=== PATIENT | male | born 1990 ===

== ENCOUNTER 2018-06-11 14:17 | Emergency (ER) | payer MEDICAID ==
[~2018-06-11] VITALS: Ht 177.8 cm; Wt 72.0 kg
--- NOTE | 2018-06-11 15:35 | NUR ---
PT ASLEEP ON GURNEY, RR EVEN AND UNLABORED. PT ON CONT SPO2 AND BP MONITOR. RPD AT BEDSIDE. AWAITING IMAGING RESULTS
--- NOTE | 2018-06-11 15:40 | NUR ---
PT'S CHART UP FOR RECHECK
[2018-06-11] MEDS ORDERED: ACETAMINOPHEN 500 MG TABLET ONE (17:28)
[2018-06-11] MEDS ORDERED: ACETAMINOPHEN 500 MG TABLET PO ONE (17:30)
[2018-06-11 17:32] VITALS: BP 127/72
== END 2018-06-11 17:49 | disposition home or self-care (01) ==
LOC: ED 16:45
DX: S06.0X9A Concussion with loss of consciousness of unspecified duration, initial encounter (principal); S02.2XXA Fracture of nasal bones, initial encounter for closed fracture; G89.11 Acute pain due to trauma; M25.531 Pain in right wrist; J45.909 Unspecified asthma, uncomplicated; V89.2XXA Person injured in unspecified motor-vehicle accident, traffic, initial encounter; Y93.89 Activity, other specified; Y92.89 Other specified places as the place of occurrence of the external cause; Y99.8 Other external cause status
CPT/HCPCS: 29260; 70450; 70486; 71045; 72125; 99284